=== PATIENT | male | born 1985 | race Caucasian/White ===

== ENCOUNTER 2016-09-10 13:06 | Emergency (ER) | payer OTHER ==
[~2016-09-10] VITALS: Ht 188 cm; Wt 90.7 kg
[2016-09-10] MEDS ORDERED: [UNRECOGNIZED DRUG - OTHER] SQ (13:14)
--- NOTE | 2016-09-10 13:14 | NUR ---
bs=63 at triage Addendum: 09/10/16 at 1317 by SPOURMANSO [facility] apple juice given to pt. persaud notified.
--- NOTE | 2016-09-10 13:45 | NUR ---
ds=64, [facility] sandwich and orange juice provided per md order
--- NOTE | 2016-09-10 14:14 | NUR ---
pt says feels better.
--- NOTE | 2016-09-10 17:03 | NUR ---
bs=73, cracker and apple juice provided.
--- NOTE | 2016-09-10 17:28 | NUR ---
Patient discharged to home in stable conditon. Written and verbal after care instructions given. Patient verbalizes understanding of instructions.pt says feels better, deneis any dizziness, sweating or nausea at this point. pt walks in steady gait.
[2016-09-10 17:32] VITALS: BP 139/91
== END 2016-09-10 17:33 | disposition home or self-care (01) ==
LOC: ER 13:06
DX: T38.3X1A Poisoning by insulin and oral hypoglycemic [antidiabetic] drugs, accidental (unintentional), initial encounter (principal); E16.0 Drug-induced hypoglycemia without coma; Y92.89 Other specified places as the place of occurrence of the external cause; F32.9 Major depressive disorder, single episode, unspecified; E11.9 Type 2 diabetes mellitus without complications; F41.9 Anxiety disorder, unspecified
CPT/HCPCS: 82962 ×3; 99282; A4663

== ENCOUNTER 2019-12-17 23:28 | Emergency (ER) | payer OTHER ==
[~2019-12-17] VITALS: Ht 188 cm; Wt 77.1 kg
[~2019-12-17 23:28] MED LIST: [UNRECOGNIZED DRUG - OTHER] SQ
--- NOTE | 2019-12-17 23:45 | NUR ---
Pt provided urine sample, sent to lab.
--- NOTE | 2019-12-17 23:50 | NUR ---
Pt placed on suicide precautions, all clothes and belongings at bedside, will personally monitor patient 1:1.
--- NOTE | 2019-12-18 | NUR ---
Dr. Dorsey at bedside for MSE.
--- NOTE | 2019-12-18 00:03 | NUR ---
Braden munoz in [facility] - 12/18/19 at 0006 by DUGLAS Called Renee Kaplan RN PET/Crisis for pt psych eval.
--- NOTE | 2019-12-18 00:03 | NUR ---
Called Renee Kaplan RN PET/Crisis for pt psych eval, left message.
--- NOTE | 2019-12-18 00:14 | NUR ---
Received call back from Renee Kaplan RN PET, instructed for call [facility] at and fax over information once patient is medically cleared.
[2019-12-18 00:18] LABS: *BILIRUBIN,URIN NEGATIVE (NEGATIVE); *BLOOD, URINE NEGATIVE (NEGATIVE); *CLARITY,URINE CLEAR (CLEAR); *COLOR,URINE YELLOW (YELLOW); *KETONES,URINE TRACE (NEGATIVE); *UROBILINOGEN,URINE 0.2 E.U./dl (NORMAL); LEUKOCYTE ESTERASE ,URINE NEGATIVE (NEGATIVE); NITRITE, URINE NEGATIVE (NEGATIVE); UGLUCOSE 2+ (NEGATIVE)
[2019-12-18 00:24] LABS: *AMPHETAMINE, URINE NEGATIVE (NEGATIVE); *BARBITURATE, URINE NEGATIVE (NEGATIVE); *CANNABINOID, URINE NEGATIVE (NEGATIVE); *COCCAINE, URINE NEGATIVE (NEGATIVE); *OPIATE, URINE POSITIVE (NEGATIVE); *PHENCYCLIDINE SCREEN,URINE NEGATIVE (NEGATIVE)
[2019-12-18 00:24] LABS: BASOPHILS % (AUTO) 0.8 % (0.0-2.0); EOSINOPHILS # (AUTO) 0.2 K/uL (0.0-0.7); EOSINOPHILS % (AUTO) 4.8 % (0.0-7.0); HEMATOCRIT 36.9 % (36.7-47.1); HEMOGLOBIN 12.6 g/dL (12.5-16.3); LYMPHOCYTES % (AUTO) 46.3 % (20.5-51.5); MEAN CORPUSCULAR HGB CONC 34 g/dL (32.5-36.3); MEAN CORPUSCULAR VOLUME 84.9 fL (73.0-96.2); MONOCYTES # (AUTO) 0.5 K/uL (2.0-10.0); NEUTROPHILS # (AUTO) 1.6 K/uL (1.8-8.9); NEUTROPHILS % (AUTO) 37.1 % (38.5-71.5); PLATELET COUNT (AUTO) 178 K/uL (152-348); RED BLOOD CELL COUNT(AUTO) 4.34 MIL/uL (4.06-5.63); WHITE BLOOD COUNT (AUTO) 4.4 K/uL (3.6-10.2)
[2019-12-18 00:33] LABS: ACETAMINOPHEN < 2.0 ug/mL (10-30); ALANINE AMINOTRANSFERASE 17 U/L (16-63); ALKALINE PHOSPHATASE 115 U/L (50-136); ASPARTATE AMINOTRANSFERASE 12 U/L (15-37); BILIRUBIN,DIRECT 0.1 mg/dL (0.0-0.2); BILIRUBIN,TOTAL 0.3 mg/dL (0.2-1.0); CARBON DIOXIDE 30 mmol/L (21-32); CHLORIDE 103 mmol/L (98-107); CREATININE 0.9 mg/dL (0.6-1.3); POTASSIUM 3.7 mmol/L (3.5-5.1); TOTAL PROTEIN, SERUM 6.4 g/dL (6.4-8.2); UREA NITROGEN, BLOOD 8 mg/dL (7-18)
[2019-12-18 00:36] LABS: GLUCOSE 367 mg/dL (74-106)
[2019-12-18 00:42] LABS: ETHANOL < 3 MG/DL (0-0)
--- NOTE | 2019-12-18 00:42 | NUR ---
Pt medically cleared by Dr. Dorsey.
[2019-12-18] MEDS ORDERED: INSULIN REGULAR, HUMAN 300 UNIT/3 ML VIAL SQ ONE (00:45)
[2019-12-18] MEDS ORDERED: INSULIN REGULAR, HUMAN 300 UNIT/3 ML VIAL ONE (00:46)
--- NOTE | 2019-12-18 01:00 | NUR ---
Received call back from Kimi, Sal for [facility], [facility] are at full capacity, instructed to fax intake to , will find placement in the morning.
[2019-12-18] MEDS ORDERED: IV NORMAL SALINE 1000 ML BAG IV ONE (02:00)
--- NOTE | 2019-12-18 08:51 | NUR ---
Spoke with Wendy from [facility] Saurav lyssa to confirm receipt of intake packet.
--- NOTE | 2019-12-18 09:04 | NUR ---
Called Renee Kaplan to evaluate patient per Dr. Rosenberg's request
--- NOTE | 2019-12-18 10:00 | NUR ---
Provided patient with meal. Patient tolerated well. Ate 90% of meal provided
--- NOTE | 2019-12-18 10:15 | NUR ---
Re faxed clinicals to [facility]. Patient AA&Ox4. denies any SI / HI at this time. NAD noted
--- NOTE | 2019-12-18 10:42 | NUR ---
10:00am: This SW arrived to the ED for case consultation. SW met with Dr. Rosenberg and MARTHA Argueta and discussed patient's case. Per Dr. Rosenberg's orders, patient has reported SI and therefore a crisis team evaluation has been -ordered, and MARTHA Argueta stated they are waiting for the arrival of the farm machinery mechanic. In the meantime, Kendall stated that he had faxed patient's medical records to [facility]. JUSTICE called Moi at [facility] [phone], inquiring about bed availability. Moi stated that he is still waiting for the discharge report for today, after which he will know what bed availability they have. Moi asked SW if patient's medical records could be faxed to him again, and this was faxed to [phone]. Dr. Rosenberg informed of above. Pending farm machinery mechanic assessment, this SW will assist with DC planning, as needed.
--- NOTE | 2019-12-18 11:00 | NUR ---
IV removed. Catheter intact and site benign. Pressure and 4x4 gauze applied to site. No bleeding noted. Patient discharged to home in stable condition. Written and verbal after care instructions given. Patient verbalizes understanding of instructions. Stressed follow up or return to ER for worsening s/s. Patient ambulating with steady gait. NAD noted. Patient denies any SI / HI. denies any Hallucinations or thoughts to harm self.
[2019-12-18 11:04] VITALS: BP 144/93
--- NOTE | 2019-12-18 12:35 | NUR ---
12:30pm: SW checked in with MARTHA Argueta to follow-up on patient's status and needs. MARTHA Argueta informed this SW that patient was discharged home, per patient' request. See RN notes. No further SS interventions for discharge planning needed at this time.
== END 2019-12-18 11:00 | disposition home or self-care (01) ==
LOC: ER 23:35
DX: T40.4X2A Poisoning by other synthetic narcotics, intentional self-harm, initial encounter (principal); Y92.89 Other specified places as the place of occurrence of the external cause; R73.9 Hyperglycemia, unspecified; R45.851 Suicidal ideations
CPT/HCPCS: 36415; 80048; 80076; 80307 ×2; 80329; 81001; 82962; 85025; 87426; 96360; 96372; 99285; G0480; J1815; J7030

== ENCOUNTER 2022-02-16 18:06 | Emergency (ER) | payer OTHER ==
[~2022-02-16] VITALS: Ht 188 cm; Wt 81.6 kg
[2022-02-16] MEDS ORDERED: ONDANSETRON 4 MG/2 ML VIAL IV ONE (18:15)
[2022-02-16] MEDS ORDERED: IV NORMAL SALINE 500 ML BAG IV ONE (18:15)
[2022-02-16] MEDS ORDERED: MORPHINE SULFATE 4 MG/1 ML DISP.SYRIN IV ONE (18:15)
[2022-02-16] MEDS ORDERED: ONDANSETRON 4 MG/2 ML VIAL ONE (18:22)
[2022-02-16] MEDS ORDERED: MORPHINE SULFATE 4 MG/1 ML DISP.SYRIN ONE (18:23)
[2022-02-16 18:35] LABS: HEMATOCRIT 36.1 % (36.7-47.1); MEAN CORPUSCULAR HEMOGLOBIN 29.5 uug (23.8-33.4); MEAN CORPUSCULAR VOLUME 84.9 fL (73.0-96.2); PLATELET COUNT (AUTO) 332 K/uL (152-348)
[2022-02-16 18:36] LABS: CARBON DIOXIDE 21 mmol/L (21-32); CHLORIDE 99 mmol/L (98-107); CREATININE 1.2 mg/dL (0.6-1.3); POTASSIUM 3.4 mmol/L (3.5-5.1); UREA NITROGEN, BLOOD 14 mg/dL (7-18)
[2022-02-16 18:38] LABS: GLUCOSE 376 mg/dL (74-106)
[2022-02-16 18:43] LABS: ALANINE AMINOTRANSFERASE 23 U/L (16-63); ALKALINE PHOSPHATASE 96 U/L (50-136); ASPARTATE AMINOTRANSFERASE 9 U/L (15-37); BILIRUBIN,TOTAL 0.3 mg/dL (0.2-1.0); LIPASE 126 U/L (73-393); TOTAL PROTEIN, SERUM 7.2 g/dL (6.4-8.2)
[2022-02-16] MEDS ORDERED: CLINDAMYCIN PHOSPHATE IV 900 MG in IV DEXTROSE 5% 100 ML IV ONE (18:45)
[2022-02-16] MEDS ORDERED: HYDROMORPHONE 1 MG/1 ML DISP.SYRIN IV ONE (18:45)
[2022-02-16] MEDS ORDERED: CLINDAMYCIN 900MG/D5W 100ML IVPB **ER PYXIS ONLY IJ ONE (18:57)
[2022-02-16] MEDS ORDERED: HYDROMORPHONE 1 MG/1 ML DISP.SYRIN ONE (18:58)
[2022-02-16] MEDS ORDERED: HYDR-3980 PO (19:29)
[2022-02-16] MEDS ORDERED: CLIN300C12 PO (19:29)
[2022-02-16] MEDS ORDERED: INSULIN REGULAR, HUMAN 300 UNIT/3 ML VIAL IV ONE (19:30)
--- NOTE | 2022-02-16 19:48 | NUR ---
IV removed. Catheter intact and site benign. Pressure and 4x4 gauze applied to site. No bleeding noted.
[2022-02-16 19:50] VITALS: BP 129/66
--- NOTE | 2022-02-16 19:50 | NUR ---
Patient discharged to home in stable condition. Written and verbal after care instructions given. Patient verbalizes understanding of instructions. Stressed follow up or return to ER for worsening s/s.
[2022-02-17 10:45] LABS: ABG BASE EXCESS -6.1 mmol/L; ABG HCO3 17.9 mmol/L; ABG PCO2 31.2 mmHg (35.0-45.0); ABG PH 7.376 (7.350-7.450); ABG PO2 72.5 mmHg (75.0-100.0); ABG SITE RIGHT RADIAL; ABG TOTAL HEMOGLOBIN 13.5 G/dL (13.5-18.0); COHb 0.3 % (0.5-1.5); MetHb 0.2 % (0.0-1.5); O2Hb 93.9 % (94.0-97.0); VENT MODE ROOM AIR
== END 2022-02-16 19:51 | disposition home or self-care (01) ==
LOC: ER 18:06
DX: E11.65 Type 2 diabetes mellitus with hyperglycemia (principal); Z79.4 Long term (current) use of insulin; L98.9 Disorder of the skin and subcutaneous tissue, unspecified; Z86.73 Personal history of transient ischemic attack (TIA), and cerebral infarction without residual deficits; Z59.00 Homelessness unspecified; Z86.69 Personal history of other diseases of the nervous system and sense organs; Z88.8 Allergy status to other drugs, medicaments and biological substances; L08.9 Local infection of the skin and subcutaneous tissue, unspecified
CPT/HCPCS: 99285; 96365; 96375; 80053; 82009; 82962; 83690; 85025; 73630; 36600; J3490; J2405; J1170; J7040; J2270

== ENCOUNTER 2022-02-22 15:30 | Emergency (ER) | payer OTHER ==
[~2022-02-22] VITALS: Ht 157.5 cm; Wt 81.6 kg
[~2022-02-22 15:30] MED LIST changes: +CLIN300C12 PO; +HYDR-3980 PO
[2022-02-22] MEDS ORDERED: IV NORMAL SALINE 1000 ML BAG IV ONE ×2 (15:45→16:45)
[2022-02-22 16:03] LABS: HEMATOCRIT 37.2 % (36.7-47.1); MEAN CORPUSCULAR HEMOGLOBIN 28.8 uug (23.8-33.4); MEAN CORPUSCULAR VOLUME 85.6 fL (73.0-96.2); PLATELET COUNT (AUTO) 272 K/uL (152-348)
[2022-02-22 16:07] LABS: ALANINE AMINOTRANSFERASE 20 U/L (16-63); ALKALINE PHOSPHATASE 87 U/L (50-136); ASPARTATE AMINOTRANSFERASE 6 U/L (15-37); BILIRUBIN,TOTAL 0.3 mg/dL (0.2-1.0); CARBON DIOXIDE 23 mmol/L (21-32); CHLORIDE 98 mmol/L (98-107); CREATININE 1.1 mg/dL (0.6-1.3); POTASSIUM 3.8 mmol/L (3.5-5.1); TOTAL PROTEIN, SERUM 7.1 g/dL (6.4-8.2); UREA NITROGEN, BLOOD 20 mg/dL (7-18)
--- NOTE | 2022-02-22 16:18 | NUR ---
Patient is a 36 year old male brought in by the police on a 5150. JUSTICE faxed the patient's clinical paperwork to [facility] ([phone]) Fax: #[phone], [facility][Note 3] ([phone]) , [facility] ([phone]) and [facility] ([phone]) . JUSTICE informed nurse, Júnior and the ER Doctor that the clinical paperwork had been faxed to the [facility] hospitals.
[2022-02-22 16:20] LABS: BILIRUBIN,DIRECT < 0.1 mg/dL (0.0-0.2)
[2022-02-22 16:22] LABS: GLUCOSE 493 mg/dL (74-106)
[2022-02-22 16:23] LABS: ACETAMINOPHEN < 10.0 ug/mL (10-30); ETHANOL 205 MG/DL (0-0)
[2022-02-22] MEDS ORDERED: INSULIN REGULAR, HUMAN 300 UNIT/3 ML VIAL SQ ONE (16:45)
[2022-02-22 17:24] LABS: *BILIRUBIN,URIN NEGATIVE (NEGATIVE); *BLOOD, URINE NEGATIVE (NEGATIVE); *CLARITY,URINE CLEAR (CLEAR); *COLOR,URINE LIGHT YELLOW (YELLOW); *KETONES,URINE 1+ (NEGATIVE); *UROBILINOGEN,URINE 0.2 E.U./dl (NORMAL); LEUKOCYTE ESTERASE ,URINE NEGATIVE (NEGATIVE); NITRITE, URINE NEGATIVE (NEGATIVE)
[2022-02-22 17:28] LABS: UGLUCOSE 2+ (NEGATIVE)
[2022-02-22] MEDS ORDERED: INSULIN REGULAR, HUMAN 300 UNIT/3 ML VIAL ONE (17:30)
[2022-02-22 17:39] LABS: *AMPHETAMINE, URINE NEGATIVE (NEGATIVE); *CANNABINOID, URINE POSITIVE (NEGATIVE); *COCCAINE, URINE NEGATIVE (NEGATIVE); *OPIATE, URINE POSITIVE (NEGATIVE); *PHENCYCLIDINE SCREEN,URINE NEGATIVE (NEGATIVE)
[2022-02-22 18:12] LABS: BACTERIA,URINE NONE SEEN /HPF (NONE SEEN); RBC,URINE 0-3 /HPF (0-3); SQUAMOUS EPITHELIAL CELL,UR FEW /HPF (NONE SEEN); WBC,URINE NONE SEEN /HPF (0-3)
[2022-02-22] MEDS ORDERED: SULF1TAB48 PO (18:19)
--- NOTE | 2022-02-22 18:56 | NUR ---
Gave pt d/c instructions, pt verbalized understanding. Will see his therapist tomorrow. Sister will pick him up.
--- NOTE | 2022-02-22 19:19 | NUR ---
When pt was d/c'd, pt noticed that his sneakers were missing. Search conducted but was unsuccessful.
--- NOTE | 2022-02-22 19:20 | NUR ---
lay out worker notified about missing shoes.
== END 2022-02-22 19:11 | disposition home or self-care (01) ==
LOC: ER 15:31
DX: E11.65 Type 2 diabetes mellitus with hyperglycemia (principal); Z79.4 Long term (current) use of insulin; Z91.14 Patient's other noncompliance with medication regimen; Z86.73 Personal history of transient ischemic attack (TIA), and cerebral infarction without residual deficits; Z86.61 Personal history of infections of the central nervous system; Z88.1 Allergy status to other antibiotic agents; L98.9 Disorder of the skin and subcutaneous tissue, unspecified; Z20.822 Contact with and (suspected) exposure to COVID-19; F32.A Depression, unspecified; Z86.69 Personal history of other diseases of the nervous system and sense organs; Z98.890 Other specified postprocedural states
CPT/HCPCS: 80076; 80048; 81001; 85025; 87426; 36415; 99285; 96372; 80299; 80320; 80307; J1815; A4663; G0480; J7040

== ENCOUNTER 2022-04-26 13:39 | Emergency (ER) | payer OTHER ==
[~2022-04-26] VITALS: Ht 180.3 cm; Wt 83.0 kg
[~2022-04-26 13:39] MED LIST changes: +SULF1TAB48 PO
[2022-04-26] MEDS ORDERED: HYDROCODONE/APAP 5-325MG TABLET PO ONE (17:15)
[2022-04-26] MEDS ORDERED: SULFAMETH/TRIMETH 800/160 MG TABLET PO ONE (17:45)
[2022-04-26] MEDS ORDERED: CEphaleXIN 500 MG CAPSULE PO ONE (17:45)
[2022-04-26] MEDS ORDERED: HYDROCODONE/APAP 5-325MG TABLET ONE (17:45)
[2022-04-26] MEDS ORDERED: CEPH500C2 PO (18:02)
[2022-04-26] MEDS ORDERED: SULF1TAB48 PO (18:02)
[2022-04-26] MEDS ORDERED: HYDR-4209 PO (18:02)
[2022-04-26] MEDS ORDERED: SULFAMETH/TRIMETH 800/160 MG TABLET ONE (18:04)
[2022-04-26] MEDS ORDERED: CEphaleXIN 500 MG CAPSULE ONE (18:04)
[2022-04-26 18:30] VITALS: BP 114/66
== END 2022-04-26 18:31 | disposition home or self-care (01) ==
LOC: ER 13:39
DX: S91.301A Unspecified open wound, right foot, initial encounter (principal); L03.115 Cellulitis of right lower limb; X58.XXXA Exposure to other specified factors, initial encounter; Y92.89 Other specified places as the place of occurrence of the external cause; Z89.422 Acquired absence of other left toe(s); L84 Corns and callosities; E11.65 Type 2 diabetes mellitus with hyperglycemia; Z79.4 Long term (current) use of insulin; Z86.61 Personal history of infections of the central nervous system; Z86.73 Personal history of transient ischemic attack (TIA), and cerebral infarction without residual deficits; Z88.9 Allergy status to unspecified drugs, medicaments and biological substances
CPT/HCPCS: 73630; A4663